=== PATIENT | male | born 1990 | race American Indian/Alaskan Native ===

== ENCOUNTER 2016-10-04 13:40 | Emergency (ER) | payer MEDICAID, OTHER ==
[2016-10-04 13:40] VITALS: BMI 20.9
[2016-10-04 13:45] VITALS: TEMP 98.5
[2016-10-04] MEDS ORDERED: Sodium Chloride 0.9% 1,000 ML IV STA (14:16)
[2016-10-04 14:26] LABS: BASO # 0.02 K/mm3 (0.0-2.0); BASO % 0.3 % (0.0-3.0); GRAN # 5.08 (1.4-6.5); GRAN % 72.6 % (50.0-68.0); MEAN CELL VOLUME 87.7 fL (80.0-105.0); MEAN CORPUSCULAR HEMOGLOBIN 31.4 pg (25.0-35.0); MEAN CORPUSCULAR HGB CONC 35.8 g/dl (31.0-37.0); MEAN PLATELET VOLUME 9.3 fl (7.0-11.0); MONO # 0.9 (0.1-0.6); MONO % 13.1 % (1.0-6.0); PLATELET COUNT 157 10^3/uL (120.0-450.0); RBC 4.78 10^6/uL (3.5-6.1); RED CELL DISTRIBUTION WIDTH 12.7 % (11.5-14.5)
[2016-10-04 14:26] LABS: PH,URINE 6.5 (4.7-8.0); URINE BILIRUBIN MODERATE (NEGATIVE); URINE BLOOD LARGE (NEGATIVE); URINE GLUCOSE (UA) NEGATIVE (NEGATIVE); URINE LEUKOCYTE ESTERASE NEGATIVE Leu/uL (NEGATIVE); URINE NITRATE NEGATIVE (NEGATIVE); URINE PROTEIN 100 mg/dL (<30 mg/dL)
--- NOTE | 2016-10-04 14:26 | ED PDOC ---
Arrival/HPI - General Historian: Patient <SHAHRZAD MARES - Last Filed: 10/04/16 16:27> <Darinel Moon - Last Filed: 10/04/16 16:50> - General Chief Complaint: Abdominal Pain Time Seen by Provider: 10/04/16 13:44 - History of Present Illness Narrative History of Present Illness (Text): 10/04/16 14:20 Mr. Urbina is a 25 year old male with no significant past medical history who complains of abdominal pain. Pt states onset was 2 days ago and is primarily described as sharp and achey. He rates the pain is 4/10 at time of interview and is primarily located at [facility]. He indicates that he has had nausea, vomiting, and watery diarrhea associated with eating food. He states these symptoms come on immediately following ingestion. He does report feeling febrile in the past 24 hours and limited oral intake over the course of his symptoms. Patient denies sick contacts or recent travel. (SHAHRZAD MARES) Past Medical History - Provider Review Nursing Documentation Reviewed: Yes - Past History Past History: No Previous - Infectious Disease Hx of Infectious Diseases: None - Tetanus Immunization Tetanus Immunization: Unknown - Cardiac Hx Cardiac Disorders: No - Pulmonary Hx Respiratory Disorders: No - Neurological Hx Neurological Disorder: No - HEENT Hx HEENT Disorder: No - Renal Hx Renal Disorder: No - Endocrine/Metabolic Hx Endocrine Disorders: No - Hematological/Oncological Hx Blood Disorders: No - Integumentary Hx Dermatological Disorder: No - Musculoskeletal/Rheumatological Hx Musculoskeletal Disorders: No - Gastrointestinal Hx Gastrointestinal Disorders: No - Genitourinary/Gynecological Hx Genitourinary Disorders: No - Psychiatric Hx Psychophysiologic Disorder: No Hx Depression: No Hx Emotional Abuse: No Hx Physical Abuse: No Hx Substance Use: No - Surgical History Other/Comment: surgery on nose, broken - Anesthesia Hx Anesthesia: Yes Hx Anesthesia Reactions: No - Suicidal Assessment Feels Threatened In Home Enviroment: No <SHAHRZAD MARES - Last Filed: 10/04/16 16:27> Family/Social History - Physician Review Nursing Documentation Reviewed: Yes Family/Social History: Diabetes (mother and father) Smoking Status: Light Smoker < 10 Cigarettes Daily Hx Alcohol Use: No Hx Substance Use: No Hx Substance Use Treatment: No <SHAHRZAD MARES - Last Filed: 10/04/16 16:27> Allergies/Home Meds <SHAHRZAD MARES - Last Filed: 10/04/16 16:27> <Darinel Moon - Last Filed: 10/04/16 16:50> Allergies/Adverse Reactions: Allergies seafood Allergy (Uncoded 10/04/16 13:42) ANAPHYLAXIS Review of Systems - Review of Systems Constitutional: Fatigue, Fevers. absent: Weight Change, Night Sweats Eyes: absent: Vision Changes, Photophobia ENT: absent: Hearing Changes Respiratory: absent: SOB, Cough Cardiovascular: absent: Chest Pain, Palpitations Gastrointestinal: Abdominal Pain, Stool Changes, Diarrhea, Nausea, Vomiting, Food Intolerance. absent: Hematochezia, Hematemesis Genitourinary Male: absent: Dysuria, Frequency Musculoskeletal: absent: Myalgias Skin: absent: Rash, Pruritis Neurological: absent: Headache, Dizziness, Focal Weakness Psychiatric: absent: Anxiety, Depression <SHAHRZAD MARES - Last Filed: 10/04/16 16:27> Physical Exam Vital Signs Reviewed: Yes Temperature: Afebrile Blood Pressure: Hypotensive Pulse: Tachycardic Respiratory Rate: Normal Appearance: Positive for: Uncomfortable Pain Distress: Mild Mental Status: Positive for: Alert and Oriented X 3 - Systems Exam Head: Present: Atraumatic, Normocephalic Pupils: Present: PERRL Extroacular Muscles: Present: EOMI Conjunctiva: No: Injected Mouth: Present: Dry, Normal Lips Neck: Present: Normal Range of Motion Respiratory/Chest: Present: Clear to Auscultation, Good Air Exchange. No: Respiratory Distress, Accessory Muscle Use Cardiovascular: Present: Regular Rate and Rhythm, Normal S1, S2 Abdomen: Present: Tenderness. No: Distention, Normal Bowel Sounds (hypoactive) , Peritoneal Signs, Rebound Upper Extremity: Present: Normal Inspection, Normal ROM, NORMAL PULSES. No: Edema Lower Extremity: Present: Normal Inspection, NORMAL PULSES Neurological: Present: GCS=15, CN II-XII Intact, Speech Normal Skin: Present: Warm, Dry Psychiatric: Present: Alert, Oriented x 3 <SHAHRZAD MARES - Last Filed: 10/04/16 16:27> Medical Decision Making <SHAHRZAD MARES - Last Filed: 10/04/16 16:27> <Imm,Darinel T - Last Filed: 10/04/16 16:50> ED Course and Treatment: 10/04/16 14:29 Impression: Mr. Urbina is a 25 year old male who complains of a 2 day history of abdominal pain associated with nausea, vomiting, and diarrhea. Differential Diagnosis included but are not limited to: - Colitis - Gastritis - Enteritis Plan: - Labs: Electrolytes, CBC, CMP, Lipase, Urinalysis, Lipase - Meds: IVF, Zofran -- Reassess and disposition Progress Notes: 10/04/16 16:27 CT Abdomen and Pelvis w/out contrast: No evidence of no gross lesion or ductal dilation associated with liver, no gallbladder and bile duct stone or obstruction, and no renal stones identified. (SHAHRZAD MARES) In agreement with resident note. Patient was seen and evaluated with resident, came up with plan and treatment together. A 25 year old male with abdominal pain. On physical exam, patient has abdominal tenderness, no rebound. UA shows hematuria and bilirubin. CT shows no stones or ductal dilitation. Labs otherwise unremarkable. Patient in no distress with normal vital signs. Instructed f/u with Urology and copy of labs/CT provided. (Darinel Moon) - Lab Interpretations Lab Results: 10/04/16 14:00 10/04/16 14:00 Lab Results 10/04/16 14:16: Urine Color Dark yellow, Urine Appearance Clear, Urine pH 6.5, Ur Specific [place] >= 1.030, Urine Protein 100 H, Urine Glucose (UA) Negative, Urine Ketones >=80, Urine Blood Large H, Urine Nitrate Negative, Urine Bilirubin Moderate H, Urine Urobilinogen 1.0 H, Ur Leukocyte Esterase Negative, Urine RBC Tntc, Urine WBC 0 - 2, Urine Bacteria Small, Urine Other Mucus 10/04/16 14:00: Sodium 137, Potassium 3.8, Chloride 101, Carbon Dioxide 24, Anion Gap 16, BUN 12, Creatinine 1.0, Est GFR ( Amer) > 60, Est GFR (Non- Af Amer) > 60, Random Glucose 89, Calcium 9.3, Phosphorus 2.7, Magnesium 1.8, Total Bilirubin 0.9, AST 25, ALT 23, Alkaline Phosphatase 65, Total Protein 7.9 , Albumin 4.6, Globulin 3.2, Albumin/Globulin Ratio 1.4, Lipase 59 10/04/16 14:00: WBC 7.0, RBC 4.78, Hgb 15.0, Hct 41.9 L, MCV 87.7, MCH 31.4, MCHC 35.8, RDW 12.7, Plt Count 157, MPV 9.3, Gran % 72.6 H, Lymph % (Auto) 14.0 L, [place] % (Auto) 13.1 H, Eos % (Auto) 0.0 L, Baso % (Auto) 0.3, Gran # 5.08, Lymph # 1.0 L, [place] # 0.9 H, Eos # 0.0, Baso # 0.02 - RAD Interpretation Radiology Orders: 10/04/16 14:56 ABD & PELVIS W/O PO OR IV CONT [CT] Stat - Medication Orders Current Medication Orders: Discontinued Medications Famotidine (Pepcid) 20 mg IVP STAT STA Stop: 10/04/16 14:35 Last Admin: 10/04/16 14:39 Dose: 20 mg Sodium Chloride (Sodium Chloride 0.9%) 1,000 mls @ 999 mls/hr IV .Q1H1M STA Stop: 10/04/16 15:16 Last Admin: 10/04/16 14:19 Dose: 999 mls/hr Sodium Chloride (Sodium Chloride 0.9%) 1,000 mls @ 100 mls/hr IV .Q10H EZE Last Admin: 10/04/16 15:31 Dose: 100 mls/hr Iohexol (Omnipaque 350 100 Ml) Confirm Administered Dose 350 mg .ROUTE .STK-MED ONE Stop: 10/04/16 15:29 Ondansetron HCl (Zofran Inj) 8 mg IVP STAT STA Stop: 10/04/16 14:17 Last Admin: 10/04/16 14:39 Dose: 8 mg - PA / [employer] / Resident Statement /DO has reviewed & agrees with the documentation as recorded. / has examined the patient and agrees with the treatment plan. <SHAHRZAD MARES - Last Filed: 10/04/16 16:27> - Scribe Statement The provider has reviewed the documentation as recorded by the Scribe <Darinel Moon - Last Filed: 10/04/16 16:50> - Scribe Statement Jay Manley All medical record entries made by the Scribe were at my direction and personally dictated by me. I have reviewed the chart and agree that the record accurately reflects my personal performance of the history, physical exam, medical decision making, and the department course for this patient. I have also personally directed, reviewed, and agree with the discharge instructions and disposition. (Darinel Moon) Disposition/Present on Arrival - Present on Arrival Any Indicators Present on Arrival: No History of DVT/PE: No History of Uncontrolled Diabetes: No Urinary Catheter: No History of Decub. Ulcer: No History Surgical Site Infection Following: None - Disposition Have Diagnosis and Disposition been Completed?: Yes Disposition Time: 16:30 <SHAHRZAD MARES - Last Filed: 10/04/16 16:27> <Darinel Moon - Last Filed: 10/04/16 16:50> - Disposition Diagnosis: Gastritis Disposition: HOME/ ROUTINE Condition: IMPROVED Discharge Instructions (ExitCare): Gastritis (GEN) Additional Instructions: Mr. Urbina, thank you for letting us take care of you today. Your provider was Dr. Mares. You were treated for gastroenteritis. The emergency medical care you received today was directed at your acute symptoms. If you were prescribed any medication, please fill it and take as directed. It may take several days for your symptoms to resolve. Return to the Emergency Department if your symptoms worsen, do not improve, or if you have any other problems. Please contact your doctor or call one of the physicians/clinics you have been referred to that are listed on the Patient Visit Information form that is included in your discharge packet. Bring any paperwork you were given at discharge with you along with any medications you are taking to your follow up visit. Our treatment cannot replace ongoing medical care by a primary care provider (PCP) outside of the emergency department. [facility] you [facility] your care today. Follow up with your primary care physician Follow up with a urologist Prescriptions: Famotidine [Pepcid] 20 mg PO DAILY #10 tab Ondansetron [Zofran] 8 mg PO BID #20 tab Referrals: PCP,NO [Primary Care Provider] - Follow up with primary
[2016-10-04 14:27] LABS: URINE APPEARANCE CLEAR (CLEAR); URINE COLOR DARK YELLOW (YELLOW)
[2016-10-04 14:37] LABS: ALB/GLOB RATIO 1.4 (1.1-1.8); ALBUMIN 4.6 g/dL (3.0-4.8); ALT/SGPT 23 U/L (7-56); AST/SGOT 25 U/L (15-59); BLOOD UREA NITROGEN 12 mg/dL (7-21); CALCIUM 9.3 mg/dL (8.4-10.5); GFR AFRICAN-AMERICAN > 60; GFR NON-AFRICAN AMERICAN > 60; LIPASE 59 U/L (23-300); MAGNESIUM 1.8 mg/dL (1.7-2.2)
[2016-10-04 14:42] LABS: URINE RBC TNTC /hpf (0-2)
[2016-10-04 14:43] LABS: URINE BACTERIA SMALL (NEG); URINE WBC 0 - 2 /hpf (0-6)
[2016-10-04] MEDS ORDERED: Sodium Chloride 0.9% 1,000 ML IV SCH (15:00)
[2016-10-04 15:27] VITALS: O2SAT 100
[2016-10-04] MEDS ORDERED: Iohexol 350 MG/100 ML VIAL ONE (15:28)
--- NOTE | 2016-10-04 16:20 | CT ---
PROCEDURE: CT Abdomen and Pelvis without intravenous contrast HISTORY: Stomach pain, vomiting COMPARISON: None. TECHNIQUE: Unenhanced study. Neither oral nor intravenous contrast administered. Radiation dose: Total exam DLP = 283.08 mGy-cm. This CT exam was performed using one or more of the following dose reduction techniques: Automated exposure control, adjustment of the mA and/or kV according to patient size, and/or use of iterative reconstruction technique. FINDINGS: LOWER THORAX: Unremarkable. LIVER: Unremarkable. No gross lesion or ductal dilatation. GALLBLADDER AND BILE DUCTS: Unremarkable. PANCREAS: Unremarkable. No gross lesion or ductal dilatation. SPLEEN: Unremarkable. ADRENALS: Unremarkable. No mass. KIDNEYS AND URETERS: Unremarkable. No hydronephrosis. No solid mass. VASCULATURE: Unremarkable. No aortic aneurysm. BOWEL: Constipation without fecal impaction or obstruction. APPENDIX: Unremarkable. Normal appendix. PERITONEUM: Unremarkable. No free fluid. No free air. LYMPH NODES: Unremarkable. No enlarged lymph nodes. BLADDER: Unremarkable. REPRODUCTIVE: Unremarkable. BONES: No acute fracture. OTHER FINDINGS: None. IMPRESSION: No acute findings related to/accounting for the clinical presentation. Limitations of the current examination: Unenhanced study. Neither oral nor intravenous contrast administered. Sensitivity and specificity for acute inflammatory processes limited by the absence of oral and intravenous contrast.
[2016-10-04 16:44] VITALS: BP 111/70; PULSE 68; RESP 16
== END 2016-10-04 16:44 | disposition home or self-care (01) ==
LOC: ED 13:40
DX: K29.70 Gastritis, unspecified, without bleeding (principal)
CPT/HCPCS: 74176; 80053; 81001; 83690; 83735; 84100; 85025; 96361; 96374; 96375; 99285; J2405; J7040